=== PATIENT | male | born 1970 | race Asian ===

== ENCOUNTER 2017-11-19 03:22 | Emergency (ER) | payer BC ==
[2017-11-19] MEDS: IPRATROPIUM (NEB) 0.5 MG/2.5 ML AMP NEB ×2 (04:14→05:07)
[2017-11-19] MEDS: ALBUTEROL 0.083% (NEB) 2.5 MG/3 ML AMP NEB (04:14)
[2017-11-19] MEDS: METHYLPREDNISOLONE 125 MG INJ IM (04:20)
[2017-11-19] MEDS: ALBUTEROL 0.5% (NEB) 2.5 MG/0.5 ML AMP NEB (05:07)
== END 2017-11-19 06:02 | disposition home or self-care (01) ==
LOC: FTE 03:22
DX: J20.9 Acute bronchitis, unspecified (principal); J45.901 Unspecified asthma with (acute) exacerbation
CPT/HCPCS: 71045; 94644; 94664; 96372; 99284-25